=== PATIENT | female | born 1995 | race Caucasian/White ===

== ENCOUNTER 2019-08-05 10:31 | Outpatient (CLI) | payer BC | END 2019-08-05 10:32 | disposition home or self-care (01) | LOC: CTENTCT 10:31 | PROVIDERS: ATTEND Student in an Organized Health Care Education/Training Program | DX: J32.9 Chronic sinusitis, unspecified (principal) | CPT/HCPCS: 70486 ==

== ENCOUNTER 2019-08-13 05:56 | Day surgery (SDC) | payer BC ==
[2019-08-13] MEDS ORDERED: Oxymetazoline HCl 0.05% ( 15 ML ) ONE ×2 (06:12→07:03)
[2019-08-13] MEDS ORDERED: EPINEPHrine 1 MG/ML AMP ONE (07:03)
[2019-08-13] MEDS ORDERED: Lidocaine 1% w/Epinephrine 1:100K 20 ML VIAL ONE (07:03)
[2019-08-13] MEDS ORDERED: Bacitracin Zinc Ointment 30 gm TUBE ONE (07:04)
[2019-08-13] MEDS ORDERED: Scopolamine 1.5 mg/72 hour Patch ONE (07:19)
[2019-08-13 07:52] LABS: BHCG - Serum Negative (NEGATIVE); Pregs Control Background? CLEAR/WHITE (CLR/WHITE); Pregs Control Bar Appear? YES (CONTROL BAR)
[2019-08-13] MEDS ORDERED: Midazolam HCl 2 mg/2 ml Vial ONE (07:56)
[2019-08-13] MEDS ORDERED: Fentanyl 100 MCG/2 ML VIAL ONE ×2 (07:56→09:07)
[2019-08-13] MEDS ORDERED: Rocuronium Bromide 10 MG/ML (10ML VIAL) ONE (10:55)
[2019-08-13] MEDS ORDERED: Ondansetron PF 4 MG/2 ML Vial ONE (10:55)
[2019-08-13] MEDS ORDERED: Glycopyrrolate 0.2 MG/ML 5 ML SYRINGE ONE (10:55)
[2019-08-13] MEDS ORDERED: PROPOFOL 200 MG/20 ML VIAL ONE (10:55)
[2019-08-13] MEDS ORDERED: Dexamethasone 20 MG/5 ML VIAL ONE (10:55)
[2019-08-13] MEDS ORDERED: Hydrocodone-Acetamin 15 ML UDCUP ONE (11:50)
[2019-08-13] MEDS ORDERED: Ondansetron ODT 4 MG TAB ONE (12:47)
--- NOTE | 2019-08-14 09:13 | OP ---
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 PROCEDURES PERFORMED: Bilateral image guidance endoscopic sinus surgery, bilateral maxillary antrostomies and removal of tissue from inside the maxillary sinuses, bilateral total ethmoidectomies with removal of tissue, septoplasty, bilateral inferior turbinate submucosal resection and bilateral lateralization of inferior turbinates. PERMIT: Procedure's risks and benefits, including those of bleeding, infection, injury, anesthesia, allergic reactions, cerebrospinal fluid leak necessitating revision or repair and alternatives reviewed with the patient and family who expressed understanding of the information. The consent form was signed and witnessed and a paper copy of the consent form was available for review in the paper chart. INDICATIONS: The patient is a female patient who presents with recurrent acute sinus infection and radiographic findings of opacification, polyps and purulence in the sinuses and inflammation and a narrow ostiomeatal complex space. She was brought to the operating room now for operative treatment. ASSISTANTS: None. FINDINGS: A small amount of purulence was found in the maxillary and ethmoid sinuses and significant polypoid changes to the tissue, turbinate hypertrophy, and severe septal deviation. DESCRIPTION OF OPERATION: The patient was brought to the operating room and laid supine on the operating room table. General endotracheal anesthesia was administered. The septum was infiltrated bilaterally with 1% lidocaine and 1:100,000 epinephrine. Six cottonoids soaked with Afrin were placed in the bilateral nasal cavities, 3 on each side and the patient was prepped and draped in the usual fashion. Image guidance was then calibrated and used throughout the entire case for localization. The nose was then evaluated endoscopically and there was polypoid tissue seen throughout as well as severe septal deviation. The patient was seen to have a very sharp septal spur and deviation to the left. Thus at this point in time, a [place] incision was made on the left side, followed by elevation of mucoperichondrial flaps. The bony cartilaginous junction was then disarticulated and the opposite side was elevated as well. A bony spur along the floor was taken down on the left side with the Trupti and the cartilaginous deviation was removed using double-action scissors and a Trupti. Care was taken to avoid destabilizing the caudal septum or the dorsal septum. A portion of the bony septum was also seen to be deviating to the right side and thus at this point in time, the portion was taken down using the Trupti forceps. After this was performed, the nasal cavity was evaluated bilaterally with the endoscopes and the mucoperichondrial flaps were reapproximated with a 4-0 chromic suture in a mattress fashion and a 5-0 chromic suture was then used to close the Bob incision. Next, bilateral inferior turbinate reductions were then performed. A stab incision was made along the anterior-inferior head of each turbinates using the tip of the oscillating turbinate blade on the microdebrider, followed by elevation of the mucosa and then the oscillating debrider was then placed into the pocket and removal of the erectile tissue from inside the turbinates on both sides. After this was performed, both inferior turbinates were then lateralized and the suction Bovie was used to seal the opening to prevent future bleeding. Next, the sinuses were evaluated first on the left side. A maxillary antrostomy was performed using a backbiter and oscillating microdebrider. The uncinate was taken down all the way up toward the frontal recess. After this was performed, next the maxillary antrum was then opened widely using an oscillating debrider. Polypoid tissue was removed from inside the sinus using the debrider. After this was performed, the anterior ethmoid bulla was taken down using the microdebrider, followed by opening up of the superior meatus utilizing the oscillating microdebrider and completing a total ethmoidectomy. Next, the same procedure was performed on the right side, completing maxillary antrostomy and total ethmoidectomy bilaterally. Sinuses were then suctioned and cleared of any bleeding. There was no active bleeding and the NasoPore was then placed bilaterally in the ostiomeatal complex lateral to the middle turbinates and the middle meatus and Al splints were then placed and sutured in place with 2-0 silk suture. The endoscope was withdrawn and the patient tolerated the procedure well without complication, was turned back to anesthesia for immediate emergence. BLOOD LOSS: 50 mL. DRAINS: No drains were placed. SPECIMENS: No specimens were taken. IMPLANTS: Al implants were placed. COMPLICATIONS: There were no complications during the procedure. FOLLOWUP: The patient will follow up in one week and will be discharged with pain medication, antibiotics and nausea medication. Job ID: [id number]
== END 2019-08-13 13:10 | disposition home or self-care (01) ==
LOC: SDC 05:56
PROVIDERS: ATTEND Student in an Organized Health Care Education/Training Program
PROC: 099Q8ZZ Drainage of Right Maxillary Sinus, Via Natural or Artificial Opening Endoscopic (ICD-10-PCS; principal; 2019-08-13)
PROC: 09QM8ZZ Repair Nasal Septum, Via Natural or Artificial Opening Endoscopic (ICD-10-PCS; principal; 2019-08-13)
PROC: 099R8ZZ Drainage of Left Maxillary Sinus, Via Natural or Artificial Opening Endoscopic (ICD-10-PCS; principal; 2019-08-13)
PROC: 09TL8ZZ Resection of Nasal Turbinate, Via Natural or Artificial Opening Endoscopic (ICD-10-PCS; principal; 2019-08-13)
DX: J01.91 Acute recurrent sinusitis, unspecified (principal); J34.2 Deviated nasal septum; J34.3 Hypertrophy of nasal turbinates
CPT/HCPCS: 84703; 85014; J0171; J1100; J2001; J2250; J2405; J2704; J3010; Q0162